=== PATIENT | female | born 1995 | race Caucasian/White ===

== ENCOUNTER → 2021-05-29 14:55 | Outpatient (BNVA) | payer OTHER, SELFPAY | PROVIDERS: Visit Provider Emergency Medicine | DX: Z20.822 Contact with and (suspected) exposure to COVID-19 (principal) | CPT/HCPCS: 87635 ==

== ENCOUNTER → 2021-12-29 08:24 | Outpatient (BNVA) | payer MEDICAID, SELFPAY | PROVIDERS: Visit Provider Nurse Practitioner Women's Health | DX: N92.6 Irregular menstruation, unspecified (principal) | CPT/HCPCS: 81025 ==

== ENCOUNTER → 2022-01-19 10:49 | Outpatient (BNVA) | payer MEDICAID, SELFPAY | PROVIDERS: Visit Provider Obstetrics & Gynecology | DX: Z34.90 Encounter for supervision of normal pregnancy, unspecified, unspecified trimester (principal); Z87.42 Personal history of other diseases of the female genital tract | CPT/HCPCS: 80307; 84315; 85027; 86592; 86762; 86803; 86850; 86900; 87086; 87340; 87806 ==

== ENCOUNTER → 2022-02-09 09:11 | Outpatient (BNVA) | payer MEDICAID, SELFPAY | PROVIDERS: Visit Provider Obstetrics & Gynecology | DX: Z34.90 Encounter for supervision of normal pregnancy, unspecified, unspecified trimester (principal); R87.610 Atypical squamous cells of undetermined significance on cytologic smear of cervix (ASC-US); Z87.42 Personal history of other diseases of the female genital tract | CPT/HCPCS: 84315; 87491; 87591; 88175 ==

== ENCOUNTER → 2022-03-10 09:51 | Outpatient (BNVA) | payer BC, MEDICAID, SELFPAY | PROVIDERS: Visit Provider Nurse Practitioner Women's Health | DX: Z34.90 Encounter for supervision of normal pregnancy, unspecified, unspecified trimester (principal); Z87.42 Personal history of other diseases of the female genital tract | CPT/HCPCS: 82105; 84315 ==

== ENCOUNTER → 2022-06-03 08:51 | Outpatient (BNVA) | payer BC, MEDICAID, SELFPAY | PROVIDERS: Visit Provider Obstetrics & Gynecology | DX: Z34.90 Encounter for supervision of normal pregnancy, unspecified, unspecified trimester (principal) | CPT/HCPCS: 81000; 82950; 85025 ==

== ENCOUNTER → 2022-06-14 10:28 | Outpatient (BNVA) | payer BC, MEDICAID, SELFPAY | PROVIDERS: Visit Provider Obstetrics & Gynecology | DX: Z34.90 Encounter for supervision of normal pregnancy, unspecified, unspecified trimester (principal) | CPT/HCPCS: 81000 ==

== ENCOUNTER → 2022-07-05 07:53 | Outpatient (BNVA) | payer BC, MEDICAID, SELFPAY | PROVIDERS: Visit Provider Obstetrics & Gynecology | DX: Z34.90 Encounter for supervision of normal pregnancy, unspecified, unspecified trimester (principal) | CPT/HCPCS: 81000 ==

== ENCOUNTER → 2022-07-12 09:56 | Outpatient (BNVA) | payer BC, MEDICAID, SELFPAY | PROVIDERS: Visit Provider Obstetrics & Gynecology | DX: Z34.90 Encounter for supervision of normal pregnancy, unspecified, unspecified trimester (principal) | CPT/HCPCS: 81000 ==

== ENCOUNTER → 2022-07-28 09:53 | Outpatient (BNVA) | payer BC, MEDICAID, SELFPAY | PROVIDERS: Visit Provider Obstetrics & Gynecology | DX: Z34.90 Encounter for supervision of normal pregnancy, unspecified, unspecified trimester (principal) | CPT/HCPCS: 81000; 87081 ==

== ENCOUNTER → 2022-08-02 08:50 | Outpatient (BNVA) | payer BC, MEDICAID, SELFPAY | PROVIDERS: Visit Provider Obstetrics & Gynecology | DX: Z34.90 Encounter for supervision of normal pregnancy, unspecified, unspecified trimester (principal) | CPT/HCPCS: 81000 ==

== ENCOUNTER → 2022-08-09 08:41 | Outpatient (BNVA) | payer BC, MEDICAID, SELFPAY | PROVIDERS: Visit Provider Obstetrics & Gynecology | DX: Z34.90 Encounter for supervision of normal pregnancy, unspecified, unspecified trimester (principal) | CPT/HCPCS: 81000 ==

== ENCOUNTER → 2022-08-16 09:56 | Outpatient (BNVA) | payer BC, MEDICAID, SELFPAY | PROVIDERS: Visit Provider Obstetrics & Gynecology | DX: Z34.90 Encounter for supervision of normal pregnancy, unspecified, unspecified trimester (principal) | CPT/HCPCS: 81000 ==

== ENCOUNTER → 2022-08-23 08:27 | Outpatient (BNVA) | payer BC, MEDICAID, SELFPAY | PROVIDERS: Visit Provider Obstetrics & Gynecology | DX: Z34.90 Encounter for supervision of normal pregnancy, unspecified, unspecified trimester (principal) | CPT/HCPCS: 81000 ==

== ENCOUNTER 2022-08-24 16:10 | Inpatient (IN) | payer BC, MEDICAID, SELFPAY ==
[2022-08-24] VITALS (17 sets, daily range): BP systolic 104–143; BP diastolic 63–101; PULSE 68–90; RESP 12–16; TEMP 36.3; O2SAT 91; BMI 31.8
[2022-08-24 16:15] LABS: Basophils % 0.3 %; Eosinophils % 0.1 %; Hematocrit 38.2 % (37.0-47.0); Hemoglobin 13.5 g/dL (11.5-15.3); Lymphocytes # 3.4 10^3/uL (0.8-4.8); Lymphocytes % 24.4 %; Mean Corpuscular HGB Conc 35.3 g/dL (30.0-36.0); Mean Corpuscular Hemoglobin 32.5 pg (28.0-34.0); Mean Platelet Volume 11.4 fL (7.4-10.4); Monocytes % 7.4 %; Neutrophils # 9.39 10^3/uL (1.8-7.7); Neutrophils % 66.8 %; Nucleated Red Blood Cells % 0 %; Platelet Count 233 10^3/cmm (130-400); Red Blood Count 4.15 10^6/uL (4.1-5.3); Red Cell Distribution Width 13.1 % (12.1-15.1); White Blood Count 14.1 10^3/uL (4.0-10.0)
[2022-08-24 17:16] LABS: Add Urine Microscopic? NO; Charge for UA Resulting for Rev
[2022-08-24 17:33] LABS: Glucose Urine UA Norm (Normal); Ketones Urine Negative (Negative); Protein Urine Neg (Negative); Specific Gravity, Urine 1.005 (1.005-1.030); Urine Appearance Clear (CLEAR); Urine Color Light Yellow (Yellow); pH Urine 6.5 (5-7)
[2022-08-24 17:34] LABS: Bilirubin Urine Neg (Negative); Blood Urine Neg (Negative); Leukocyte Esterase Urine Negative (Negative); Nitrate Urine Negative (Negative); Urobilinogen Urine Norm (Negative)
[2022-08-24] MEDS: miSOPROStol 100 mcg tablet 25 MCG VAGINAL ×2 (17:50→21:59)
[2022-08-24 17:56] LABS: Urine Creatinine 14 mg/dL (28-217); Urine Protein Random 4 mg/dL
[2022-08-24 17:57] LABS: UPRO/UCREAT Ratio 0.29 mg/mg CR
[2022-08-24 22:14] LABS: Alanine Aminotransferase 14 U/L (0-33); Albumin Level 3.6 g/dL (3.5-5.2); Alkaline Phosphatase 150 U/L (35-105); Anion Gap 18.7 (5-19); Aspartate Amino Transferase 24 U/L (0-32); Blood Urea Nitrogen 11 mg/dL (6-20); Calcium 9.1 mg/dL (8.5-10.5); Carbon Dioxide 17 mmol/L (22-29); Chloride 101 mmol/L (98-107); Globulin 2.6 g/dL (1.3-4.6); Glomerular Filtration Rate 86.7 mL/min (90-130); Glucose 75 mg/dL (65-115); Osmolality Calculated 274 mOsm/kg (285-295); Potassium 3.7 mmol/L (3.5-5.1); Sodium 133 mmol/L (136-145); Total Bilirubin 0.2 mg/dL (0.15-1.2); Total Protein 6.2 g/dL (6.6-8.7); Uric Acid 7.5 mg/dL (2.4-5.7)
[2022-08-25] VITALS (92 sets, daily range): BP systolic 103–154; BP diastolic 55–105; PULSE 67–111; RESP 14; TEMP 36.4–36.7; O2SAT 89–99
[2022-08-25] MEDS: lactated ringers 1,000 ML 999 ML IV ×2 (00:19→01:45)
--- NOTE | 2022-08-25 02:55 | ANES.PREANE2 ---
Pre-Anesthetic Assessment Height/Weight: Height 1.6 m Weight 81.647 kg Temp Pulse Resp BP Pulse Ox O2 Del Method 97.4 F L 77 16 136/86 99 08/24/22 23:38 08/25/22 02:50 08/24/22 23:38 08/25/22 02:43 08/25/22 02:50 08/24/22 18:43 Labor Epidural Familial anesthetic complications: None Last intake: 1999- meal 08/25/22 clears- current Social No alcohol and No tobacco Exam alert, oriented x 3 and clear to auscultation bilaterally Airway Submandibular: within normal limits Cervical ROM: within normal limits Mallampati: Class II Dentition: full History/ROS No significant history except as noted Pulmonary None reported CV/HEM None reported None reported Hepatic None reported GI None reported Metabolic None reported Musc/skel None reported Neuropsych None reported Anesthetic Plan ASA status: 2 Anesthesia: Regional (specify below) Other: Labor Epidural Medications/Allergies Home Medications Medication Instructions Recorded Confirmed Last Taken Type prenat.vits,cedrick,wfx-krqs-nplzh 1 tab PO DAILY 12/29/21 08/23/22 Unknown History cimetidine 400 mg tablet 400 mg PO BID #60 tabs 07/05/22 08/23/22 Unknown Rx Allergies Allergy/AdvReac Type Severity Reaction Status Date / Time No Known Allergies Allergy Verified 08/23/22 08:42 Current Medications Generic Name Dose Route Start Last Admin Trade Name Freq PRN Reason Stop Dose Admin Lactated Ringer's 1,000 mls @ 999 mls/hr 08/24/22 15:58 08/25/22 00:49 Lactated Ringers IV 0 mls/hr .Q1H1M PRN Infusion Per L&D Rescitation Protocol Ropivacaine 200 mg in 100 mls @ 13 mls/hr 08/25/22 01:45 08/25/22 02:49 Naropin Premix EPIDURAL 13 mls/hr .Q7H42M TERE Administration Lactated Ringer's 1,000 mls @ 999 mls/hr 08/25/22 01:33 08/25/22 01:45 Lactated Ringers IV 999 mls/hr .Q1H1M PRN Administration See label comments Misoprostol 25 mcg 08/24/22 17:15 08/24/22 21:59 Misoprostol 100 Mcg Tablet VAGINAL 25 mcg Q4H PRN Administration LABOR INDUCTION PFSH Anesthesia Medical History No pertinent past medical history Denies diabetes, asthma, hypertension, seizures, DVT/PE PCP: None Surgical History No pertinent past surgical history Family History Father Hypertension Denies family history of Colon cancer Ovarian cancer Diabetes Heart disease Hypercholesteremia Breast cancer Uterine cancer Thyroid disease Stroke Social History Smoking and tobacco status: never smoked Female Reproductive History : 1 Data Anesthesia : 08/24/22 15:35 08/24/22 11:53 Short CBC 08/24/22 Range/Units 15:35 WBC 14.1 H (4.0-10.0) 10^3/uL Hgb 13.5 (11.5-15.3) g/dL Hct 38.2 (37.0-47.0) % MCV 92.0 (81-99) fl Plt Count 233 (130-400) 10^3/cmm Neut % (Auto) 66.8 % Neut # (Auto) 9.39 H (1.8-7.7) 10^3/uL BMP 08/24/22 11:53 Sodium 133 L Potassium 3.7 Chloride 101 Carbon Dioxide 17 L BUN 11 Creatinine 0.8 Glucose 75 Calcium 9.1 Liver Function 08/24/22 Range/Units 11:53 Total Bilirubin 0.2 (0.15-1.2) mg/dL AST 24 (0-32) U/L ALT 14 (0-33) U/L Alkaline Phosphatase 150 H (35-105) U/L Albumin 3.6 (3.5-5.2) g/dL Urine 08/24/22 Range/Units 17:00 Urine Color Light yellow (Yellow) Urine Appearance Clear (CLEAR) Urine pH 6.5 (5-7) Ur Specific [place] 1.005 (1.005-1.030) Urine Protein Neg (Negative) Urine Glucose (UA) Norm (Normal) Urine Ketones Negative (Negative) Urine Nitrate Negative (Negative) Urine Bilirubin Neg (Negative) Ur Leukocyte Esterase Negative (Negative) Cardiac Studies: No Data to Display Anesthesia Procedures Epidural Time Out Performed: Yes Consent: from patient, risks and benefits reviewed and patient agrees to proceed Lumbar Level: L3-L4 Epidural position: sitting Epidural procedure: sterile prep of area, 1% lidocaine to numb the area, negative for paresthesia passed, test dose given, 1.5% xylocaine 1:200k epi, placed PCEA, no systemic response, sterile dressing applied, L.U.D. no apparent complications and 0.2% Ropiavacaine @ mls/hr (13) Additional Comments: successful on first attempt ALEXIS at 6.5 catheter threaded to 14 cm. 100 mcg Fentanyl given via epidural, remaining lidocaine given via epidural. VSS
[2022-08-25] MEDS: dextrose 5%-lactated ringers 1,000 ML 125 ML IV ×2 (05:49→14:00)
--- NOTE | 2022-08-25 06:14 | PM.OPHPUD ---
Labor & Delivery H&P Update Date of Procedure: August 25, 2022 Date H&P Performed: 08/23/22 H&P update information: I have reviewed H&P completed within last 30 days, I have examined patient prior to procedure and No changes to prior documentation Changes to previous documentation: The patient is here for induction of labor at term. Admission Diagnosis: Related Problem List Diagnoses (1) Supervision of normal :
[2022-08-25] MEDS: ondansetron 2 mg/ML SDV 2 mL 4 MG IVP (09:04)
[2022-08-25] MEDS: oxytocin 30 UNIT/500 ML BAG 600 UNIT IV (12:52)
[2022-08-25] MEDS: lidocaine 2% INJ 20 mL INJECTION (12:58)
--- NOTE | 2022-08-25 13:12 | P.PCNOB_ITS ---
Delivery Note: Date of delivery: August 25, 2022 Pre-delivery diagnoses: iup @ 40w3d Post-delivery diagnoses: same-delivered Procedure: Delivering Physician: Yomi Estimated blood loss (mL): 50 Pre-Delivery Course: The patient was admitted for induction at term. She had two doses of cytotec and received an epidural as she was laboring on her own. She had AROM performed with meconium stained fluid. She had complete cervical dilation and began pushing. Delivery: The patient had complete cervical dilation and began to push. The head delivered in the RAN position over an intact perineum under epidural anesthesia. The nose and mouth were bulb suctioned. The shoulders and body delivered atraumatically. The baby was placed onto the mother's abdomen. The cord was clamped and cut. The placenta delivered spontaneously. It was inspected and found to be intact. Inspection of the perineum revealed a second- degree perineal laceration which was repaired in the usual fashion. Estimated blood loss 50 mL. Apgars on baby were 8 at 1 minute and 8 at 5 minutes. Weight of baby is 7 pounds 6 ounces. Mother and baby were stable post delivery. History History History 1 Term Miscarriages/Ectopic Living Children Coding Level of Care Code Acute [employer] Tender for Basia Mckeon
[2022-08-25] MEDS: ibuprofen 800 mg tablet PO ×2 (16:35→21:22)
[2022-08-25] MEDS: benzocaine-menthol 78 gm Canister 1 SPRAY TOPICAL (16:36)
--- NOTE | 2022-08-25 16:41 | ANE.PACU2 ---
Inpatient post-anesthesia follow up: Airway intact: Yes Vital signs: Temperature 97.7 F Pulse Rate 83 Respiratory Rate 14 Blood Pressure 142/91 Pulse Oximetry 97 Oxygen Delivery Me thod Non-Rebreather Oxygen Flow Rate 15 Fraction of Inspir ed Oxygen Hydration adequate: Yes Nausea and vomiting: No Pain level: 2 Mental status: Baseline
--- NOTE | 2022-08-25 16:57 | PC.NURSE ---
RN at bedside at 1500. Epidural catheter removed. Catheter tip intact upon removal. Covered skin with bandaid. Tolerated well.
[2022-08-26 01:21] LABS: Hematocrit 32.8 % (37.0-47.0); Hemoglobin 11.4 g/dL (11.5-15.3); Mean Corpuscular HGB Conc 34.8 g/dL (30.0-36.0); Mean Corpuscular Hemoglobin 32.7 pg (28.0-34.0); Mean Platelet Volume 11.1 fL (7.4-10.4); Platelet Count 179 10^3/cmm (130-400); Red Blood Count 3.49 10^6/uL (4.1-5.3); Red Cell Distribution Width 13.3 % (12.1-15.1); White Blood Count 27.1 10^3/uL (4.0-10.0)
[2022-08-26 01:58] VITALS: BP 127/78; PULSE 77; TEMP 36.4; O2SAT 99
[2022-08-26 06:40] VITALS: BP 120/74; PULSE 81; TEMP 36.6; O2SAT 99
--- NOTE | 2022-08-26 08:00 | P.DS_ITS ---
Discharge Providers Date of Admission: 08/24/22 16:10 Date of Discharge: August 26, 2022 Attending Provider at Admission: Kaylin Celaya MD Attending Provider at Discharge: Kaylin Celaya MD Diagnoses at Discharge Discharge Diagnosis (1) Supervision of normal : Status: Acute Reason for Visit Reason for Visit: induction Hospital Course Hospital Course The patient was admitted for induction at term. She had spontaneous delivery of a term . She did well and was ready for discharge on day #1 Physical Exam Narrative: The patient is doing well. No concerns today Const: COMMON NORMALS: no acute distress, patient oriented x3, no limitations, healthy appearing, alert and well nourished GENERAL APPEARANCE: cooperative, comfortable, well kempt and well developed ORIENTATION/CONSCIOUSNESS: Yes awake, Yes oriented to person, Yes oriented to place and Yes oriented to time Resp: COMMON NORMALS: normal respiratory effort EFFORT & INSPECTION: Yes able to speak in complete sentences GI: COMMON NORMALS: Soft to palpation and non-tender PALPATION: Yes Soft to palpation Extremity: COMMON NORMALS: no calf tenderness Neuro: COMMON NORMALS: patient oriented x3 SENSORIUM/ORIENTATION: Yes alert, Yes oriented to person, Yes oriented to place and Yes oriented to time Psych: COMMON NORMALS: mental status grossly normal, Normal thought process present, cooperative, normal affect and speech normal APPEARANCE: Yes well kempt SPEECH: Yes normal speech THOUGHT PROCESS: Normal thought process present Urinary Catheter Management: Larios Latex: Cath Placed During This Visit: yes, but has since been removed by the nurse Reason for Continuing Indwelling Catheter: Required Immobilization for Trauma or Surgery or Anesthesia Urinary Catheter Date of Insertion: 08/25/22 Urinary Catheter Time of Insertion: 03:22 Date Urinary Catheter Removed: 08/25/22 Time Urinary Catheter Discontinued: 10:40 Discharge Data Studies Completed and Pending Laboratory Results WBC 27.1 10^3/uL (4.0-10.0) H 08/26/22 01:15 RBC 3.49 10^6/uL (4.1-5.3) L 08/26/22 01:15 Hgb 11.4 g/dL (11.5-15.3) L 08/26/22 01:15 Hct 32.8 % (37.0-47.0) L 08/26/22 01:15 MCV 94.0 fl (81-99) 08/26/22 01:15 MCH 32.7 pg (28.0-34.0) 08/26/22 01:15 MCHC 34.8 g/dL (30.0-36.0) 08/26/22 01:15 RDW 13.3 % (12.1-15.1) 08/26/22 01:15 Plt Count 179 10^3/cmm (130-400) 08/26/22 01:15 MPV 11.1 fL (7.4-10.4) H 08/26/22 01:15 Neut % (Auto) 66.8 % 08/24/22 15:35 Lymph % (Auto) 24.4 % 08/24/22 15:35 [place] % (Auto) 7.4 % 08/24/22 15:35 Eos % (Auto) 0.1 % 08/24/22 15:35 Baso % (Auto) 0.3 % 08/24/22 15:35 Neut # (Auto) 9.39 10^3/uL (1.8-7.7) H 08/24/22 15:35 Lymph # (Auto) 3.4 10^3/uL (0.8-4.8) 08/24/22 15:35 [place] # (Auto) 1.0 10^3/uL (0.2-0.9) H 08/24/22 15:35 Eos # (Auto) 0.0 10^3/uL (0.0-0.8) 08/24/22 15:35 Baso # (Auto) 0.0 10^3/uL (0.0-0.1) 08/24/22 15:35 Nucleated RBC % (auto) 0 % 08/24/22 15:35 Nucleated RBCs # 0.0 /100WBC 08/24/22 15:35 Sodium 133 mmol/L (136-145) L 08/24/22 11:53 Potassium 3.7 mmol/L (3.5-5.1) 08/24/22 11:53 Chloride 101 mmol/L (98-107) 08/24/22 11:53 Carbon Dioxide 17 mmol/L (22-29) L 08/24/22 11:53 Anion Gap 18.7 (5-19) 08/24/22 11:53 BUN 11 mg/dL (6-20) 08/24/22 11:53 Creatinine 0.8 mg/dL (0.5-0.9) 08/24/22 11:53 GFR Calculation 86.7 mL/min (90-130) L 08/24/22 11:53 Glucose 75 mg/dL (65-115) 08/24/22 11:53 Calculated Osmolality 274 mOsm/kg (285-295) L 08/24/22 11:53 Uric Acid 7.5 mg/dL (2.4-5.7) H 08/24/22 11:53 Calcium 9.1 mg/dL (8.5-10.5) 08/24/22 11:53 Total Bilirubin 0.2 mg/dL (0.15-1.2) 08/24/22 11:53 AST 24 U/L (0-32) 08/24/22 11:53 ALT 14 U/L (0-33) 08/24/22 11:53 Alkaline Phosphatase 150 U/L (35-105) H 08/24/22 11:53 Total Protein 6.2 g/dL (6.6-8.7) L 08/24/22 11:53 Albumin 3.6 g/dL (3.5-5.2) 08/24/22 11:53 Globulin 2.6 g/dL (1.3-4.6) 08/24/22 11:53 Urine Color Light yellow (Yellow) 08/24/22 17:00 Urine Appearance Clear (CLEAR) 08/24/22 17:00 Urine pH 6.5 (5-7) 08/24/22 17:00 Ur Specific [place] 1.005 (1.005-1.030) 08/24/22 17:00 Urine Protein Neg (Negative) 08/24/22 17:00 Urine Glucose (UA) Norm (Normal) 08/24/22 17:00 Urine Ketones Negative (Negative) 08/24/22 17:00 Urine Blood Neg (Negative) 08/24/22 17:00 Urine Nitrate Negative (Negative) 08/24/22 17:00 Urine Bilirubin Neg (Negative) 08/24/22 17:00 Urine Urobilinogen Norm mg/dL (Negative) 08/24/22 17:00 Ur Leukocyte Esterase Negative (Negative) 08/24/22 17:00 U Random Total Protein 4 mg/dL 08/24/22 17:00 Urine Creatinine 14 mg/dL (28-217) L 08/24/22 17:00 Protein/Creatinin Ratio 0.29 mg/mg CR 08/24/22 17:00 Vitals Last Vital Signs Temp 97.9 F 08/26/22 06:40 Pulse 81 08/26/22 06:40 Resp 14 08/25/22 13:11 BP 120/74 08/26/22 06:40 Pulse Ox 99 08/26/22 06:40 O2 Del Method 08/26/22 06:40 O2 Flow Rate 15 08/25/22 06:19 Discharge Plan Discharge Patient Disposition: Home Condition: Stable Prescriptions: Continued cimetidine 400 mg tablet 400 mg PO BID Qty: 60 5RF Rx Instructions: administer with meals prenat.vits,cedrick,txp-cxrk-iczad Tablet 1 tab PO DAILY Discharge Orders: Discharge Order (Routine); Ordered 08/26/22 Ordered By: Kaylin Celaya Referrals: Kaylin Celaya MD [Physician] - 10/08/22 3:30 pm Patient Instructions: Depression (DC), Bleeding (DC), Preeclampsia and Eclampsia After Delivery (GEN), Hemorrhage (DC), OB Discharge Report, OB Food/Drug Interaction Guide, OB Care at Home, Opioid Safety, OB Home Care, OB Vaginal Deliveries - [facility] Discharge Attestations Time Spent in Discharge Care*: less than 30 min Quality Metrics Clinical Quality Measures [ No reported AMI, CVA or VTE this stay] Coding Level of Care Code Acute Chg FW DC note Diagnoses Supervision of normal Z34.90
[2022-08-26] MEDS: prenatal vitamin Capsule 1 CAP PO (09:47)
[2022-08-26] MEDS: ibuprofen 800 mg tablet PO (09:47)
[2022-08-26] MEDS: docusate sodium 100 mg Capsule PO (09:47)
[2022-08-26 14:10] VITALS: BP 124/71; PULSE 84; RESP 16; TEMP 36.4; O2SAT 97
== END 2022-08-26 14:35 | disposition home or self-care (01) | DRG 807 ==
LOC: OPOB 16:11 → OBGYN 08-25 01:59
PROVIDERS: Admitting Provider Obstetrics & Gynecology; Visit Provider Obstetrics & Gynecology
DX: O48.0 Post-term pregnancy (principal); Z37.0 Single live birth; Z3A.40 40 weeks gestation of pregnancy; O77.0 Labor and delivery complicated by meconium in amniotic fluid; O70.1 Second degree perineal laceration during delivery; O75.89 Other specified complications of labor and delivery; K21.9 Gastro-esophageal reflux disease without esophagitis
CPT/HCPCS: 36415; 51702; 59025; 59409; 80053; 81003; 82570; 84156; 84550; 85025; 85027; 90471; 90686; 96374; 99211; J2405; J2795; J3010

== ENCOUNTER 2023-05-16 06:51 | Day surgery (SDC) | payer BC, MEDICAID, SELFPAY ==
[2023-05-13 08:55] VITALS: BMI 26.2
[2023-05-16] VITALS (10 sets, daily range): BP systolic 96–126; BP diastolic 57–85; PULSE 71–96; RESP 15–16; TEMP 36.1–36.7; O2SAT 98–100
--- NOTE | 2023-05-16 06:58 | P.HP_ITS ---
Providers/Chief Complaint Chief Complaint: 48653 K42.9 History of Present Illness Emilia Riley is a 27 year old female Medications/Allergies Home Medications Medication Instructions Recorded Confirmed Last Taken Type prenat.vits,cedrick,iiy-ldnu-ecnmj 1 tab PO DAILY 12/29/21 05/13/23 05/13/23 History norethindrone (contraceptive) 0.35 0.35 mg PO DAILY #28 tabs 09/15/22 05/13/23 05/13/23 Rx mg tablet ([facility]) Allergies Allergy/AdvReac Type Severity Reaction Status Date / Time No Known Allergies Allergy Verified 03/18/23 15:42 PFSH Acute PFSH: Medical History No pertinent past medical history Denies diabetes, asthma, hypertension, seizures, DVT/PE PCP: None Surgical History (Updated 04/05/23 @ 10:21 by Roger Rosen DO) Hx of wisdom tooth extraction No pertinent past surgical history Family History Father Hypertension Denies family history of Colon cancer Ovarian cancer Diabetes Heart disease Hypercholesteremia Breast cancer Uterine cancer Thyroid disease Stroke Social History Smoking and tobacco status: never smoked Alcohol intake: never Female Reproductive History: Date of last menstrual period: 04/09/23 A&P Assessment and plan (1) Umbilical hernia: Plan Laparoscopic umbilical hernia repair with mesh Attestations Medical Necessity Statement*: home Coding Level of Care Code Acute Code for [facility] Fwd Diagnoses Umbilical hernia K42.9
[2023-05-16 07:10] LABS: OR HCG Qualitative Urine Negative (Negative)
[2023-05-16] MEDS: sodium chloride 0.9% 1,000 ML 30 ML IV (07:20)
--- NOTE | 2023-05-16 08:06 | ANES.PREANE2 ---
Pre-Anesthetic Assessment Height/Weight: Height 1.6 m Weight 67.132 kg Temp Pulse Resp BP Pulse Ox O2 Del Method 97.7 F 80 16 96/79 99 Room Air 05/16/23 07:06 05/16/23 07:06 05/16/23 07:06 05/16/23 07:06 05/16/23 07:06 05/16/23 07:06 Operation Date: 05/16/23 08:10 Proposed Procedures p 70885 lap umbilical hernia repair with mesh K42.9(Not Applicable) - Roger Rosen DO Familial anesthetic complications: None Was Beta Phi taken within 24 hours: N/A Was Clonidine taken within 24 hours: N/A Last intake: Intake Last Liquid Date 05/15/23 Last Liquid Time 23:55 Last Solid Date 05/15/23 Last Solid Time 21:00 Social No alcohol and No tobacco Exam alert, oriented x 3, clear to auscultation bilaterally and regular rate & rhythm Airway Mallampati: Class II Dentition: chipped Anesthetic Plan ASA status: 3 Anesthesia: General Risk of > 500 ml blood loss (7ml/kg in children): No Medications/Allergies Home Medications Medication Instructions Recorded Confirmed Last Taken Type prenat.vits,cedrick,nrn-kdbj-osfgw 1 tab PO DAILY 12/29/21 05/13/23 05/13/23 History norethindrone (contraceptive) 0.35 0.35 mg PO DAILY #28 tabs 09/15/22 05/13/23 05/13/23 Rx mg tablet ([facility]) Allergies Allergy/AdvReac Type Severity Reaction Status Date / Time No Known Allergies Allergy Verified 03/18/23 15:42 Current Medications Generic Name Dose Route Start Last Admin Trade Name Freq PRN Reason Stop Dose Admin Sodium Chloride 1,000 mls @ 30 mls/hr 05/16/23 07:00 05/16/23 07:20 Sodium Chloride 0.9% IV 05/17/23 06:59 30 mls/hr .Q24H TERE Administration PFSH Anesthesia Medical History No pertinent past medical history Denies diabetes, asthma, hypertension, seizures, DVT/PE PCP: None Surgical History (Updated 04/05/23 @ 10:21 by Roger Rosen DO) Hx of wisdom tooth extraction No pertinent past surgical history Family History Father Hypertension Denies family history of Colon cancer Ovarian cancer Diabetes Heart disease Hypercholesteremia Breast cancer Uterine cancer Thyroid disease Stroke Social History Smoking and tobacco status: never smoked Alcohol intake: never Female Reproductive History Date of last menstrual period: 04/09/23 Data Anesthesia Cardiac Studies: No Data to Display
[2023-05-16] MEDS: ceFAZolin 2,000 MG in sodium chloride 0.9% (plus) 50 ML 100 MG IV (08:14)
[2023-05-16] MEDS: lidocaine-epi 2% 20 mL INJ INJECTION (08:36)
--- NOTE | 2023-05-16 08:53 | PM.OP ---
Operative Report Date of procedure: May 16, 2023 Pre-op diagnosis: Umbilical hernia Post-op diagnosis: same Procedure done: Laparoscopic repair of umbilical hernia with mesh Implants: 11 cm ventral light round mesh Specimens removed/disposition: Hernia sac Surgeon: Dr. Roger Rosen DO Anesthesia: General Estimated blood loss (mL): 5 Complications: None apparent Brief History: This very pleasant 27-year-old female who presented my office with a reducible 1.5 cm umbilical hernia. She desires repair. Laparoscopic umbilical hernia repair with mesh was indicated. The risk and benefits were explained and documented. Procedure: Patient was wheeled into the operative room and placed on the OR table in a supine position. Abdomen was inspected prepped and draped in usual sterile fashion. Time-out was performed and all present were in agreement. A 15 blade scalp was used to make a 5 millimeter incision left upper quadrant. A Veress needle was placed into the incision and intra-abdominal insufflation was brought to 15 millimeters of mercury. A 12 millimeter trocar was placed into the left lower quadrant. The energy but device was then used to cut out the hernia sac. The hernia defect measured 1.5 cm in diameter. An 11 cm ventral light mesh was placed into the abdomen and brought up through the umbilicus using an the Jose-No. The mesh was then tacked in place in a double crown fashion. The skeleton of the mesh was removed via the left lower quadrant. The hernia sac was then removed from the abdomen via the left lower quadrant. The left lower quadrant port site was closed with an 0 Vicryl suture in a Jose-No in a [id number] fashion. Incisions were closed with 4-0 Monocryl in a subcuticular interrupted fashion. Skin glue was applied. A dressing that included cotton balls and a Tegaderm was placed over the umbilicus. Patient tolerated the procedure well.
[2023-05-16] MEDS: HYDROcodone-acetaminophen 5-325 mg Tablet 1 TAB PO (10:01)
--- NOTE | 2023-05-16 13:50 | ANE.PACU2 ---
Inpatient post-anesthesia follow up: Airway intact: Yes Vital signs: Temperature 98.1 F Pulse Rate 79 Respiratory Rate 15 Blood Pressure 98/78 Pulse Oximetry 98 Oxygen Delivery Me thod Room Air Oxygen Flow Rate 6 Fraction of Inspir ed Oxygen Hydration adequate: Yes Nausea and vomiting: Yes Pain level: 1 Mental status: Baseline
== END 2023-05-16 11:00 | disposition home or self-care (01) ==
PROVIDERS: Visit Provider Surgery
PROC: 0WQF4ZZ Repair Abdominal Wall, Percutaneous Endoscopic Approach (ICD-10-PCS; CPT 49591; principal; 2023-05-16 08:00)
DX: K42.9 Umbilical hernia without obstruction or gangrene (principal)
CPT/HCPCS: 49591; 81025; 84703; 88302; C1781; J0690; J1100; J1885; J2405; J2704; J2710; J3010; J3490; J7030

== ENCOUNTER 2024-04-07 02:05 | Inpatient (IN) | payer BC, MEDICAID, SELFPAY ==
[2024-04-07] VITALS (92 sets, daily range): BP systolic 93–177; BP diastolic 51–130; PULSE 63–106; RESP 16–17; TEMP 36.6; O2SAT 83–100; BMI 31.3
[2024-04-07] MEDS: lactated ringers 1,000 ML 999 ML IV ×2 (02:56→04:05)
[2024-04-07 03:10] LABS: Basophils % 0.3 %; Eosinophils # 0.1 10^3/uL (0.0-0.8); Eosinophils % 0.6 %; Hematocrit 37.7 % (36-47); Lymphocytes # 3.2 10^3/uL (0.8-4.8); Mean Corpuscular HGB Conc 34.7 g/dL (30-55); Mean Corpuscular Hemoglobin 32.1 pg (27-33); Mean Corpuscular Volume 92.4 fl (85-98); Mean Platelet Volume 10.2 fL (7.4-10.4); Monocytes % 7.1 %; Neutrophils # 9.49 10^3/uL (1.8-7.7); Neutrophils % 68.2 %; Nucleated Red Blood Cells % 0 %; Platelet Count 227 10^3/cmm (157-399); Red Blood Count 4.08 10^6/uL (3.85-5.65); Red Cell Distribution Width 12.6 % (12.1-15.1); White Blood Count 13.93 10^3/uL (3.29-11.43)
[2024-04-07] MEDS: ampicillin 2,000 MG in sodium chloride 0.9% (plus) 50 ML 100 MG IV (03:21)
[2024-04-07] MEDS: ROPivacaine syringe 100 MG/50 ML SYRINGE 10 MG EPIDURAL ×3 (04:38→10:07)
--- NOTE | 2024-04-07 04:51 | P.ANESASSM_ITS ---
Pre-Anesthetic Assessment Height/Weight: Height 1.6 m Weight 80.286 kg Pulse BP Pulse Ox 93 123/68 97 04/07/24 04:47 04/07/24 04:46 04/07/24 04:47 Preop Diagnosis: IUP Labor Epidural Familial anesthetic complications: None Was Beta Phi taken within 24 hours: N/A Was Clonidine taken within 24 hours: N/A Last intake: CLEARS- CURRENT Social No alcohol and No tobacco Exam alert, oriented x 3 and clear to auscultation bilaterally Airway Submandibular: within normal limits Cervical ROM: within normal limits Mallampati: Class II Dentition: full History/ROS No significant history except as noted CV/HEM None reported None reported Hepatic None reported GI Gastroesophageal Reflux Disease Metabolic None reported Musc/skel None reported Neuropsych None reported Anesthetic Plan ASA status: 2 Anesthesia: Regional (specify below) Other: Labor Epidural Other Pertinent Information elevated WBC 13,000 with no obvious indication of infectious process Medications/Allergies Home Medications Medication Instructions Recorded Confirmed Last Taken Type prenat.vits,cedrick,avo-xzcx-lvefh 1 tab PO DAILY 12/29/21 05/31/23 05/15/23 History norethindrone (contraceptive) 0.35 0.35 mg PO DAILY #28 tabs 09/15/22 05/31/23 05/15/23 Rx mg tablet ([facility]) Allergies Allergy/AdvReac Type Severity Reaction Status Date / Time No Known Allergies Allergy Verified 05/31/23 14:15 Current Medications Generic Name Dose Route Start Last Admin Trade Name Freq PRN Reason Stop Dose Admin Lactated Ringer's 1,000 mls @ 999 mls/hr 04/07/24 02:01 04/07/24 02:56 Lactated Ringers IV 999 mls/hr .Q1H1M PRN Administration See label comments PFSH Anesthesia Medical History No pertinent past medical history Denies diabetes, asthma, hypertension, seizures, DVT/PE PCP: None Surgical History (Updated 05/31/23 @ 14:44 by Roger Rosen DO) Hx of umbilical hernia repair 05/16/23 Dr. Rosen Hx of wisdom tooth extraction No pertinent past surgical history Family History Father Hypertension Denies family history of Colon cancer Ovarian cancer Diabetes Heart disease Hypercholesteremia Breast cancer Uterine cancer Thyroid disease Stroke Social History Smoking and tobacco/nicotine status: never used tobacco/nicotine Alcohol intake: never Female Reproductive History : 2 Data Anesthesia 04/07/24 03:00 Short CBC 04/07/24 Range/Units 03:00 WBC 13.93 H (3.29-11.43) 10^3/uL Hgb 13.10 (11.27-16.99) g/dL Hct 37.7 (36-47) % MCV 92.4 (85-98) fl Plt Count 227 (157-399) 10^3/cmm Neut % (Auto) 68.2 % Neut # (Auto) 9.49 H (1.8-7.7) 10^3/uL Blood Bank 04/07/24 03:00 Blood Type A Positive Rho(D) Type Rh positive Antibody Screen Negative Cardiac Studies: 2 No Data to Display Anesthesia Procedures Epidural Time Out Performed: Yes Consents Signed: Procedure Consent Consent: from patient, risks and benefits reviewed and patient agrees to proceed Lumbar Level: L3-L4 Epidural position: sitting Epidural procedure: sterile prep of area, 1% lidocaine to numb the area, negative for paresthesia passed, test dose given, 1.5% xylocaine 1:200k epi, placed PCEA, no systemic response, sterile dressing applied and L.U.D. no apparent complications Additional Comments: ALEXIS @ 4.5cm , first attempt, - heme -csf. catheter threaded to 12cm with ease. Adequate analgesia achieved.
[2024-04-07] MEDS: dextrose 5%-lactated ringers 1,000 ML 125 ML IV (05:10)
[2024-04-07] MEDS: ampicillin 1,000 MG in sodium chloride 0.9% (plus) 50 ML 100 MG IV ×2 (06:36→10:07)
[2024-04-07] MEDS: oxytocin 30 UNIT/500 ML BAG 600 UNIT IV (13:04)
--- NOTE | 2024-04-07 13:24 | PM.OPHPUD ---
Labor & Delivery H&P Update Date of Procedure: April 07, 2024 Date H&P Performed: 04/05/23 Admission Diagnosis: IUP at 40 weeks 0 days gestation Active labor Group B strep positive Preop diagnosis: IUP Planned procedure: Expectant management of labor and delivery GBS prophylaxis
--- NOTE | 2024-04-07 13:24 | PM.DELIVERY ---
Delivery Note: Date of delivery: April 07, 2024 Pre-Delivery Course: The patient had routine care at [facility]. There were no complications during the . labs: Blood type a positive antibody negative, hepatitis B nonreactive, hepatitis C nonreactive, HIV nonreactive, rubella nonimmune, GC chlamydia negative, RPR nonreactive, UDS negative, Q jennifer low risk, she failed her 1 hour glucose tolerance but passed her 3-hour glucose tolerance test, she was GBS positive. She received 3 doses of ampicillin prior to delivery. Delivery: This is a 28-year-old G2, P1 at 40 weeks 0 days gestation who presented to labor and delivery in active labor. She received an epidural for pain management. Her labor progressed rather well on its own. She had spontaneous rupture of membranes with meconium stained fluid less than 1 hour prior to delivery. She had a very swollen anterior lip that was reducible with pushing. She only had to push through 2 contractions and had a normal spontaneous vaginal delivery of a viable female weight 3600 g, 7 pounds 15 ounces, Apgars 8 and 9 over an intact perineum. The infant was suctioned at delivery and placed on the mother's chest. The cord was clamped and cut. The placenta was delivered grossly intact and normal to inspection with meconium staining. There was a second-degree perineal laceration that was sutured using 3-0 chromic in a running fashion. Estimated blood loss 150 mL. Mother and infant were doing well after delivery. History History History 1 Term 1 0 Miscarriages/Ectopic 0 Living Children 1 Coding Level of Care Code Acute Code for Chg Fwd
--- NOTE | 2024-04-07 14:54 | ANE.PACU2 ---
Inpatient post-anesthesia follow up: Airway intact: Yes Vital signs: Temperature Pulse Rate 93 Respiratory Rate Blood Pressure 115/61 Pulse Oximetry 97 Oxygen Delivery Me thod Oxygen Flow Rate Fraction of Inspir ed Oxygen Hydration adequate: Yes Nausea and vomiting: No Pain level: 2 Mental status: Baseline Epidural Start/End: Epidural Start Date: 04/07/24 Epidural Start Time: 04:16 Epidural End Date: 04/07/24 Epidural End Time: 14:20
[2024-04-07] MEDS: docusate sodium 100 mg Capsule PO (16:41)
[2024-04-07] MEDS: ibuprofen 800 mg tablet PO ×2 (16:41→21:11)
[2024-04-07] MEDS: lanolin oint 7 gm 1 APPLIC TOPICAL (16:42)
[2024-04-07] MEDS: benzocaine-menthol 78 gm Canister 1 SPRAY TOPICAL (16:42)
[2024-04-08 01:55] LABS: Hematocrit 35.4 % (36-47); Mean Corpuscular HGB Conc 34.2 g/dL (30-55); Mean Corpuscular Hemoglobin 32.3 pg (27-33); Mean Corpuscular Volume 94.4 fl (85-98); Mean Platelet Volume 10.3 fL (7.4-10.4); Platelet Count 199 10^3/cmm (157-399); Red Blood Count 3.75 10^6/uL (3.85-5.65); Red Cell Distribution Width 12.9 % (12.1-15.1); White Blood Count 14.05 10^3/uL (3.29-11.43)
[2024-04-08 04:14] VITALS: BP 112/73; PULSE 86; RESP 16; TEMP 36.7; O2SAT 98
[2024-04-08] MEDS: PRENATAL VIT NO.130/IRON/FOLIC 1 EACH TABLET PO (08:26)
[2024-04-08] MEDS: ibuprofen 800 mg tablet PO (08:26)
[2024-04-08] MEDS: docusate sodium 100 mg Capsule PO (08:26)
[2024-04-08] MEDS: measles,mumps,rubella pf Vial (w/diluent) 0.5 ML SUBCUT (08:30)
[2024-04-08 09:45] VITALS: BP 112/64; PULSE 89; RESP 16; TEMP 36.6; TEMP 36.7; O2SAT 97
--- NOTE | 2024-04-08 12:06 | PM.DCS ---
Discharge Providers Date of Admission: 04/07/24 02:05 Date of Discharge: April 08, 2024 Attending Provider at Admission: Shelly Yuan MD Attending Provider at Discharge: Shelly Yuan MD Reason for Visit Reason for Visit: contractions Hospital Course Hospital Course This is a 28-year-old G2 now P2 who was admitted in active labor and had a normal spontaneous vaginal delivery of a viable female infant. Mother and infant have done well after delivery. Mother is ambulating, tolerating a regular diet, has average vaginal bleeding and is comfortable with discharge home. Physical Exam Narrative: Alert and oriented, feeding in bed, heart regular rate and rhythm, lungs clear to auscultation bilaterally, abdomen is soft and nontender, fundus is firm, extremities have trace edema but no calf tenderness Urinary Catheter Management: Larios Latex: Cath Placed During This Visit: yes, but has since been removed by the nurse Reason for Continuing Indwelling Catheter: Decision to DC Catheter Urinary Catheter Date of Insertion: 04/07/24 Urinary Catheter Time of Insertion: 05:30 Date Urinary Catheter Removed: 04/07/24 Time Urinary Catheter Discontinued: 12:58 Discharge Data Studies Completed and Pending Laboratory Results WBC 14.05 10^3/uL (3.29-11.43) H 04/08/24 01:35 RBC 3.75 10^6/uL (3.85-5.65) L 04/08/24 01:35 Hgb 12.10 g/dL (11.27-16.99) 04/08/24 01:35 Hct 35.4 % (36-47) L 04/08/24 01:35 MCV 94.4 fl (85-98) 04/08/24 01:35 MCH 32.3 pg (27-33) 04/08/24 01:35 MCHC 34.2 g/dL (30-55) 04/08/24 01:35 RDW 12.9 % (12.1-15.1) 04/08/24 01:35 Plt Count 199 10^3/cmm (157-399) 04/08/24 01:35 MPV 10.3 fL (7.4-10.4) 04/08/24 01:35 Neut % (Auto) 68.2 % 04/07/24 03:00 Lymph % (Auto) 23.0 % 04/07/24 03:00 [place] % (Auto) 7.1 % 04/07/24 03:00 Eos % (Auto) 0.6 % 04/07/24 03:00 Baso % (Auto) 0.3 % 04/07/24 03:00 Neut # (Auto) 9.49 10^3/uL (1.8-7.7) H 04/07/24 03:00 Lymph # (Auto) 3.2 10^3/uL (0.8-4.8) 04/07/24 03:00 [place] # (Auto) 1.0 10^3/uL (0.2-0.9) H 04/07/24 03:00 Eos # (Auto) 0.1 10^3/uL (0.0-0.8) 04/07/24 03:00 Baso # (Auto) 0.0 10^3/uL (0.0-0.1) 04/07/24 03:00 Nucleated RBC % (auto) 0 % 04/07/24 03:00 Nucleated RBCs # 0.0 /100WBC 04/07/24 03:00 Blood Type A Positive 04/07/24 03:00 Rho(D) Type Rh positive 04/07/24 03:00 Antibody Screen Negative 04/07/24 03:00 Vitals Last Vital Signs Temp 98.0 F 04/08/24 09:45 Pulse 89 04/08/24 09:45 Resp 16 04/08/24 09:45 BP 112/64 04/08/24 09:45 Pulse Ox 97 04/08/24 09:45 O2 Del Method Room Air 04/08/24 09:45 Discharge Plan Discharge Patient Disposition: Home Condition: Stable Prescriptions: Continued prenat.vits,cedrick,[id number] Tablet 1 tab PO DAILY Discontinued norethindrone (contraceptive) [Ortho [facility]] 0.35 mg tablet 0.35 mg PO DAILY Qty: 28 12RF Discharge Orders: Discharge Order (Routine); Ordered 04/08/24 Ordered By: Shelly Yuan Referrals: Shelly Yuan MD [Physician] - 1 month Discharge Diet: Usual diet Discharge Activity: Limit activity as instructed Patient Instructions: Depression (DC), Opioid Safety (DC), Preeclampsia and Eclampsia After Delivery (GEN), Hemorrhage (DC), OB Discharge Report, OB Food/Drug Interaction Guide, OB Care at Home, Opioid Safety, OB Vaginal Deliveries, Abnormal Bleeding Activity Restrictions/Additional Instructions: Nothing per vagina for 6 weeks Discharge Attestations Time Spent in Discharge Care*: less than 30 min Quality Metrics Clinical Quality Measures [ No reported AMI, CVA or VTE this stay] Coding Level of Care Code Acute Code for Chg Fwd
[2024-04-08 14:45] VITALS: BP 118/78; PULSE 87; RESP 16; TEMP 36.8; O2SAT 100
[2024-04-08 15:45] VITALS: BP 118/78; PULSE 87; RESP 16; TEMP 36.8; O2SAT 100
== END 2024-04-08 14:57 | disposition home or self-care (01) | DRG 807 ==
LOC: OPOB 02:06 → OBGYN 02:06
PROVIDERS: Admitting Provider Family Medicine; Visit Provider Family Medicine
DX: O99.824 Streptococcus B carrier state complicating childbirth (principal); Z37.0 Single live birth; O77.0 Labor and delivery complicated by meconium in amniotic fluid; O70.1 Second degree perineal laceration during delivery; Z3A.40 40 weeks gestation of pregnancy
CPT/HCPCS: 36415; 51702; 59025; 59409; 83986; 85025; 85027; 86850; 86900; 90707; 96372; 99211; J0290; J2590; J2795; J7120; J7121

== ENCOUNTER 2024-08-05 16:27 | Emergency (ER) | payer BC, MEDICAID, SELFPAY ==
[2024-08-05 16:32] VITALS: BP 135/83; PULSE 78; RESP 15; TEMP 36.7; O2SAT 99; BMI 28.0
--- NOTE | 2024-08-05 17:04 | W.ED.EXTPRO ---
HPI - Extremity Problem General: Chief complaint: Extremity Injury, Lower Stated complaint: both feet tingling, pain and swelling Time Seen by Provider: 08/05/24 16:44 History of Present Illness: 29-year-old female comes in today with complaints of pain, tingling in the soles of the feet, and some mild swelling. 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 Patient this time is wearing [place] shoes and does endorse that she has wore sandals all week at work. Patient reports increased pain and discomfort over the last 2 days. Patient appears nontoxic. Patient denies any chronic medical problems. Related Data Home Medications Medication Instructions Recorded Confirmed prenat.vits,cedrick,[id number] 1 tab PO DAILY 12/29/21 05/31/23 Allergies Allergy/AdvReac Type Severity Reaction Status Date / Time No Known Allergies Allergy Verified 05/31/23 14:15 Review of Systems General: Reports: 10 or more systems reviewed and unremarkable except in HPI and below PFSH ED PFSH: Medical History (Updated 08/05/24 @ 17:05 by VERN Eddy) No pertinent past medical history Denies diabetes, asthma, hypertension, seizures, DVT/PE PCP: None Surgical History (Updated 05/31/23 @ 14:44 by Roger Rosen DO) Hx of umbilical hernia repair 05/16/23 Dr. Rosen Hx of wisdom tooth extraction No pertinent past surgical history Family History Father Hypertension Denies family history of Colon cancer Ovarian cancer Diabetes Heart disease Hypercholesteremia Breast cancer Uterine cancer Thyroid disease Stroke Social History Smoking and tobacco/nicotine status: never used tobacco/nicotine Alcohol intake: never Physical Exam Const: COMMON NORMALS: alert HENMT: COMMON NORMALS: normocephalic HEAD & SCALP: normocephalic Neck/C-Spine: COMMON NORMALS: full ROM Resp: COMMON NORMALS: normal respiratory effort Cardio: COMMON NORMALS: regular rate RATE: regular rate Back/Pelvis: COMMON NORMALS: thoracic and lumbar spine normal to inspection Extremity: COMMON NORMALS: normal to inspection Neuro: SENSORIUM/ORIENTATION: Yes alert Skin: COMMON NORMALS: turgor normal GENERAL SKIN EXAM: turgor normal Course Vital Signs: Vital signs: Vital Signs Temperature 98.1 F 08/05/24 16:32 Pulse Rate 78 08/05/24 16:32 Respiratory Rate 15 08/05/24 16:32 Blood Pressure 135/83 08/05/24 16:32 Pulse Oximetry 99 08/05/24 16:32 Oxygen Delivery Me thod Room Air 08/05/24 16:32 MDM - Extremity (Nontraumatic) Medical Decision Making Patient comes in today for complaints of bilateral foot pain along with tingling and numbness at times. On exam patient has no obvious swelling or irregularity in the soles of the feet. Patient has prompt capillary refill. Patient does report some decreased sensation in the digits. Negative Babinski's. Cap refills intact. Vital signs are normal. Differential diagnosis includes not limited to lumbar radiculopathy, tarsal tunnel syndrome, plantar fasciitis, pes planus. Reviewed exam with patient with recommendations for change of shoes with better support for the foot, heel, and arch. Discussed need for the use of acetaminophen ibuprofen for pain. Recommended follow-up with podiatry for further recommendations. Patient stated understanding agreed to plan. No radiology studies performed this visit Discharge Plan Discharge Patient Disposition: Home Clinical Impression: Foot pain, bilateral Condition: Stable Prescriptions: No Action prenat.vits,cedrick,[id number] Tablet 1 tab PO DAILY Discharge Orders: Discharge ED (Routine); Ordered 08/05/24 Ordered By: Timothy Krueger Discharge Diet: Usual diet Discharge Activity: Increase activity as tolerated Patient Instructions: Metatarsalgia (DC) Activity Restrictions/Additional Instructions: Wear a good supportive shoe with plenty of cushion and good arch and heel support. You may try a insert to help with pain. Avoid shoes with minimal cushion or support for the foot such as flip-flops and/or [place]. Coding Level of Care Code ED Registration Coordinator for Basia Mckeon
--- NOTE | 2024-08-06 08:23 | DCPLANNER ---
messaged podiatry for er f/u
== END 2024-08-05 17:18 | disposition home or self-care (01) ==
PROVIDERS: Emergency Provider Nurse Practitioner Family
DX: M79.672 Pain in left foot (principal); M79.671 Pain in right foot
CPT/HCPCS: 99282

== ENCOUNTER → 2024-08-29 14:07 | Outpatient (BNVA) | payer BC, MEDICAID, SELFPAY | PROVIDERS: Visit Provider Podiatrist Foot & Ankle Surgery | DX: M79.671 Pain in right foot (principal); M79.672 Pain in left foot; M21.6X1 Other acquired deformities of right foot; M21.6X2 Other acquired deformities of left foot; M72.2 Plantar fascial fibromatosis; M76.821 Posterior tibial tendinitis, right leg; M76.822 Posterior tibial tendinitis, left leg | CPT/HCPCS: 73630 ==

== ENCOUNTER 2024-10-16 22:36 | Emergency (ER) | payer BC, MEDICAID, SELFPAY ==
[2024-10-16 22:38] VITALS: BP 122/86; PULSE 80; RESP 15; TEMP 36.6; O2SAT 99; BMI 27.6
[2024-10-16 22:46] VITALS: BP 133/77; PULSE 80; O2SAT 98
--- NOTE | 2024-10-16 23:12 | ED_ITS ---
HPI - Extremity Problem 2 General: Chief complaint: Extremity Injury, Lower Stated complaint: legs suddenly feel like jello after walk 10 feet Time Seen by Provider: 10/16/24 22:51 History of Present Illness: 29-year-old female who is having issues with her legs feeling weak from the knees down for several months now. She was seen by podiatry and they felt like it was not related to her feet and they recommend that she goes to orthopedics. Says it has been getting somewhat worse. She says her calves become cramped when she walks. She also has some pain behind her right knee. This happened recent injury a few months back and was what she says is the initiation of this problem. She appears to have good circulation. No fevers. No redness. I do not see any obvious swelling. Related Data Home Medications Medication Instructions Recorded Confirmed prenat.vits,cedrick,[id number] 1 tab PO DAILY 12/29/21 10/09/24 Allergies Allergy/AdvReac Type Severity Reaction Status Date / Time No Known Allergies Allergy Verified 10/16/24 22:47 Review of Systems 2 Narrative: Constitutional symptoms: Negative except as documented in HPI. Skin symptoms: Negative except as documented in HPI. Eye symptoms: Negative except as documented in HPI. ENMT symptoms: Negative except as documented in HPI. Respiratory symptoms: Negative except as documented in HPI. Cardiovascular symptoms: Negative except as documented in HPI. Gastrointestinal symptoms: Negative except as documented in HPI. Genitourinary symptoms: Negative except as documented in HPI. Musculoskeletal symptoms: Negative except as documented in HPI. Neurologic symptoms: Negative except as documented in HPI. Psychiatric symptoms: Negative except as documented in HPI. Endocrine symptoms: Negative except as documented in HPI. PFSH ED 2 PFSH: Medical History No pertinent past medical history Denies diabetes, asthma, hypertension, seizures, DVT/PE PCP: None Surgical History Hx of umbilical hernia repair 05/16/23 Dr. Rosen Hx of wisdom tooth extraction No pertinent past surgical history Family History Father Hypertension Denies family history of Colon cancer Ovarian cancer Diabetes Heart disease Hypercholesteremia Breast cancer Uterine cancer Thyroid disease Stroke Social History Smoking and tobacco/nicotine status: never used tobacco/nicotine Alcohol intake: never Female Reproductive History: Date of last menstrual period: 10/15/24 Physical Exam 2 Narrative: EXAM NARRATIVE: General: Alert, no acute distress. Skin: warm and dry Head: Normocephalic Neck: Trachea midline Eye: Extraocular movements are intact. Ears, nose, mouth and throat: Oral mucosa moist Respiratory: Respirations are non-labored Musculoskeletal: Normal ROM Neurological: Alert and oriented, No focal neurological deficit observed. Psychiatric: Cooperative, appropriate mood & affect. Course 2 Vital Signs: Vital signs: Vital Signs Temperature 97.8 F 10/16/24 22:38 Pulse Rate 87 10/17/24 00:06 Respiratory Rate 15 10/16/24 22:38 Blood Pressure 103/71 10/17/24 00:06 Pulse Oximetry 98 10/17/24 00:06 Oxygen Delivery Me thod Room Air 10/16/24 22:46 MDM - Extremity (Nontraumatic) Medical Decision Making Lab Review: Laboratory results were reviewed and interpreted by myself the emergency room physician. No leukocytosis. No anemia. No renal failure. Potassium and magnesium are normal. Liver enzymes are normal. I reviewed the patient's medical record. Reexamination: Patient remained stable. No increased work of breathing. No altered mental status. No focal motor deficits. I discussed with patient at length possible avenues to find a diagnosis for this. It has been going on for some time. No recent trauma so I do not think any imaging or do right now. I feel like she should follow-up with Ortho as podiatry instructed and possibly consider neurology if orthopedics cannot diagnose her condition. Assessment and plan: Bilateral leg pain - Discharged home - Discussed plan with patient. Answered any questions. - Evaluation and treatment of this problem were appropriate in the emergency setting. Lab Data 10/16/24 23:10 10/16/24 23:10 Laboratory Results WBC 9.86 10^3/uL (3.29-11.43) 10/16/24 23:10 RBC 4.11 10^6/uL (3.85-5.65) 10/16/24 23:10 Hgb 13.00 g/dL (11.27-16.99) 10/16/24 23:10 Hct 37.3 % (36-47) 10/16/24 23:10 MCV 90.8 fl (85-98) 10/16/24 23:10 MCH 31.6 pg (27-33) 10/16/24 23:10 MCHC 34.9 g/dL (30-55) 10/16/24 23:10 RDW 11.9 % (12.1-15.1) L 10/16/24 23:10 Plt Count 302 10^3/cmm (157-399) 10/16/24 23:10 MPV 9.7 fL (7.4-10.4) 10/16/24 23:10 Neut % (Auto) 51.9 % 10/16/24 23:10 Lymph % (Auto) 38.9 % 10/16/24 23:10 [place] % (Auto) 7.6 % 10/16/24 23:10 Eos % (Auto) 0.7 % 10/16/24 23:10 Baso % (Auto) 0.7 % 10/16/24 23:10 Neut # (Auto) 5.11 10^3/uL (1.8-7.7) 10/16/24 23:10 Lymph # (Auto) 3.8 10^3/uL (0.8-4.8) 10/16/24 23:10 [place] # (Auto) 0.8 10^3/uL (0.2-0.9) 10/16/24 23:10 Eos # (Auto) 0.1 10^3/uL (0.0-0.8) 10/16/24 23:10 Baso # (Auto) 0.1 10^3/uL (0.0-0.1) 10/16/24 23:10 Nucleated RBC % (auto) 0 % 10/16/24 23:10 Nucleated RBCs # 0.0 /100WBC 10/16/24 23:10 Sodium 141 mmol/L (136-145) 10/16/24 23:10 Potassium 3.8 mmol/L (3.5-5.1) 10/16/24 23:10 Chloride 105 mmol/L (98-107) 10/16/24 23:10 Carbon Dioxide 25 mmol/L (22-29) 10/16/24 23:10 Anion Gap 14.8 (5-19) 10/16/24 23:10 BUN 9 mg/dL (6-20) 10/16/24 23:10 Creatinine 0.6 mg/dL (0.5-0.9) 10/16/24 23:10 GFR Calculation 119.0 mL/min (90-130) 10/16/24 23:10 Glucose 102 mg/dL (65-115) 10/16/24 23:10 Calculated Osmolality 291 mOsm/kg (285-295) 10/16/24 23:10 Calcium 9.4 mg/dL (8.5-10.5) 10/16/24 23:10 Magnesium 2.1 mg/dL (1.7-2.3) 10/16/24 23:10 Total Bilirubin 0.2 mg/dL (0.15-1.2) 10/16/24 23:10 AST 15 U/L (0-32) 10/16/24 23:10 ALT 11 U/L (0-33) 10/16/24 23:10 Alkaline Phosphatase 63 U/L (35-105) 10/16/24 23:10 C-Reactive Protein 3.0 mg/L (0.0-4.9) 10/16/24 23:10 Total Protein 6.9 g/dL (6.6-8.7) 10/16/24 23:10 Albumin 4.6 g/dL (3.5-5.2) 10/16/24 23:10 Globulin 2.3 g/dL (1.3-4.6) 10/16/24 23:10 No radiology studies performed this visit Discharge Plan Discharge Patient Disposition: Home Clinical Impression: Leg pain Condition: Stable Prescriptions: No Action prenat.vits,cedrick,[id number] Tablet 1 tab PO DAILY Discharge Orders: Discharge ED (Routine); Ordered 10/16/24 Ordered By: Lexy Tineo Referrals: Alfonzo Nix DO [Physician] - 4-7 days (Please call for a follow-up appointment with orthopedics. I think this is the next best step in diagnosing this issue) Discharge Diet: Usual diet Discharge Activity: Increase activity as tolerated Patient Instructions: Opioid Safety, Pain Management Activity Restrictions/Additional Instructions: Thank you for choosing [facility] for your healthcare needs today. Please realize this is an emergency room and that we are providing you with a medical screening exam and this may not be complete and all inclusive of all the testing and or work up that you may need to determine your ailment or severity of your illness. You have been screened and evaluated and felt safe for discharge. Health conditions do change or evolve sometimes and as such it is important that you follow up with your Primary Doctor to be re checked, 3-5 days is a general good time frame for follow up. You are always welcome to return to the ED for re assessment if your symptoms are worsening or you have new concerns Coding Level of Care Code ED Bath Mixer for Basia Mckeon
[2024-10-16 23:43] LABS: Basophils # 0.1 10^3/uL (0.0-0.1); Basophils % 0.7 %; Eosinophils # 0.1 10^3/uL (0.0-0.8); Eosinophils % 0.7 %; Hematocrit 37.3 % (36-47); Lymphocytes # 3.8 10^3/uL (0.8-4.8); Lymphocytes % 38.9 %; Mean Corpuscular HGB Conc 34.9 g/dL (30-55); Mean Corpuscular Hemoglobin 31.6 pg (27-33); Mean Corpuscular Volume 90.8 fl (85-98); Mean Platelet Volume 9.7 fL (7.4-10.4); Monocytes # 0.8 10^3/uL (0.2-0.9); Monocytes % 7.6 %; Neutrophils # 5.11 10^3/uL (1.8-7.7); Neutrophils % 51.9 %; Nucleated Red Blood Cells % 0 %; Platelet Count 302 10^3/cmm (157-399); Red Blood Count 4.11 10^6/uL (3.85-5.65); Red Cell Distribution Width 11.9 % (12.1-15.1); White Blood Count 9.86 10^3/uL (3.29-11.43)
[2024-10-16 23:48] LABS: Alanine Aminotransferase 11 U/L (0-33); Albumin Level 4.6 g/dL (3.5-5.2); Alkaline Phosphatase 63 U/L (35-105); Anion Gap 14.8 (5-19); Aspartate Amino Transferase 15 U/L (0-32); Blood Urea Nitrogen 9 mg/dL (6-20); Calcium 9.4 mg/dL (8.5-10.5); Carbon Dioxide 25 mmol/L (22-29); Chloride 105 mmol/L (98-107); Creatinine Clr Calc Pharmacy 131.6581; Globulin 2.3 g/dL (1.3-4.6); Glucose 102 mg/dL (65-115); Magnesium 2.1 mg/dL (1.7-2.3); Osmolality Calculated 291 mOsm/kg (285-295); Potassium 3.8 mmol/L (3.5-5.1); Sodium 141 mmol/L (136-145); Total Bilirubin 0.2 mg/dL (0.15-1.2); Total Protein 6.9 g/dL (6.6-8.7)
[2024-10-17 00:06] VITALS: BP 103/71; PULSE 87; O2SAT 98
== END 2024-10-17 00:06 | disposition home or self-care (01) ==
PROVIDERS: Emergency Provider Emergency Medicine
DX: M79.605 Pain in left leg (principal); M79.604 Pain in right leg
CPT/HCPCS: 80053; 83735; 85025; 86140; 99283

== ENCOUNTER 2024-10-24 11:42 | Emergency (ER) | payer BC, MEDICAID, SELFPAY ==
[2024-10-24 11:45] VITALS: BP 122/73; PULSE 84; RESP 16; TEMP 36.6; O2SAT 98; BMI 27.6
[2024-10-24 12:23] LABS: Basophils # 0.1 10^3/uL (0.0-0.1); Basophils % 0.7 %; Eosinophils % 0.6 %; Hematocrit 40.5 % (36-47); Lymphocytes # 2.4 10^3/uL (0.8-4.8); Lymphocytes % 34.9 %; Mean Corpuscular HGB Conc 34.3 g/dL (30-55); Mean Corpuscular Hemoglobin 32.3 pg (27-33); Mean Corpuscular Volume 94.2 fl (85-98); Mean Platelet Volume 9.6 fL (7.4-10.4); Monocytes # 0.5 10^3/uL (0.2-0.9); Monocytes % 7.1 %; Neutrophils # 3.92 10^3/uL (1.8-7.7); Neutrophils % 56.4 %; Nucleated Red Blood Cells % 0 %; Platelet Count 263 10^3/cmm (157-399); Red Cell Distribution Width 12.2 % (12.1-15.1); White Blood Count 6.94 10^3/uL (3.29-11.43)
[2024-10-24 12:37] LABS: HCG, Serum Qual Negative (Negative)
[2024-10-24 12:43] LABS: Alanine Aminotransferase 12 U/L (0-33); Albumin Level 4.6 g/dL (3.5-5.2); Alkaline Phosphatase 70 U/L (35-105); Anion Gap 13.8 (5-19); Aspartate Amino Transferase 13 U/L (0-32); Blood Urea Nitrogen 12 mg/dL (6-20); Calcium 9.1 mg/dL (8.5-10.5); Carbon Dioxide 24 mmol/L (22-29); Chloride 103 mmol/L (98-107); Creatinine Clr Calc Pharmacy 131.6581; Globulin 2.5 g/dL (1.3-4.6); Glucose 101 mg/dL (65-115); Osmolality Calculated 284 mOsm/kg (285-295); Potassium 3.8 mmol/L (3.5-5.1); Sodium 137 mmol/L (136-145); Total Bilirubin 0.2 mg/dL (0.15-1.2); Total Protein 7.1 g/dL (6.6-8.7)
--- NOTE | 2024-10-24 14:08 | CTR_ITS ---
PROCEDURE INFORMATION: Exam: CT Head Without Contrast Exam date and time: 10/24/2024 2:27 PM Age: 29 years old Clinical indication: Other: Vision changes; Additional info: Vision change, intermittent vision changes and left tongue tingling TECHNIQUE: Imaging protocol: Computed tomography of the head without contrast. Axial, coronal and sagittal reformatted images were created and reviewed. Radiation optimization: All CT scans at this facility use at least one of these dose optimization techniques: automated exposure control; mA and/or kV adjustment per patient size (includes targeted exams where dose is matched to clinical indication); or iterative reconstruction. COMPARISON: No relevant prior studies available. RADIATION DOSE METRICS: Total DLP (mGy-cm): 1013.18 FINDINGS: Brain: No CT evidence of acute intracranial hemorrhage or acute territorial infarction. No significant mass effect or midline shift. Basal cisterns patent. Cerebral ventricles: Normal in size and configuration. Paranasal sinuses: Unremarkable. No fluid levels. Mastoid air cells: Grossly unremarkable. Bones: Unremarkable. No acute fracture. Soft tissues: Grossly unremarkable. CT/CT head wo con* [id number] IMPRESSION: No CT evidence of acute intracranial pathology.
--- NOTE | 2024-10-24 14:08 | ED_ITS ---
HPI - Weakness 2 General: Chief complaint: Weakness Stated complaint: both legs feel numb Time Seen by Provider: 10/24/24 13:45 Source: patient Mode of arrival: ambulatory Limitations: no limitations History of Present Illness: Patient presents to the emergency department today at the recommendation of her primary care office at [facility] for continued symptoms of bilateral lower extremity (below the knee) episodes of weakness and new complaints of intermittent vision changes, left side of tongue swelling and intermittent roaring of the ears bilaterally. Patient was seen and evaluated here in the emergency department for somewhat similar symptoms on 10/17. She had otherwise negative examination and was recommended that they discuss follow-up with orthopedics or neurology. Patient has been complaining of several months of intermittent bilateral lower leg weakness and occasional tingling. She does follow with podiatry for other foot issues but, podiatry indicated they did not think her symptoms had anything to do with her actual feet. 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 Reports that time on her feet or even activity such as trying to walk through the grocery store, results in lower extremity fatigue where she has to sit down. States that they will feel like Jell-O . Patient is now stating that she has been getting intermittent visual changes. States that when she is focusing up close and cutting people's hair that when she looks away, has difficulty focusing. Also mentions intermittent sensations of left-sided tongue swelling without any difficulty breathing or swallowing. Also indicated feeling like her ears were ringing off and on as well. Patient was seen at [facility] yesterday. They delroy a B12 level on her which was within normal limits. She states that they did give her a referral to neurology. However, the patient's family member in the room said that the primary care office told her to come to the emergency department today. Patient states that she had a right knee injury several months ago-prior to her bilateral lower extremity weakness but, no other injuries directly to her back or head. She is not endorsing any bowel or bladder dysfunction. Review of Systems 2 General: Reports: 10 or more systems reviewed and unremarkable except in HPI and below PFSH ED 2 PFSH: Medical History No pertinent past medical history Denies diabetes, asthma, hypertension, seizures, DVT/PE PCP: None Surgical History Hx of umbilical hernia repair 05/16/23 Dr. Rosen Hx of wisdom tooth extraction No pertinent past surgical history Family History Father Hypertension Denies family history of Colon cancer Ovarian cancer Diabetes Heart disease Hypercholesteremia Breast cancer Uterine cancer Thyroid disease Stroke Social History Smoking and tobacco/nicotine status: never used tobacco/nicotine Alcohol intake: never Physical Exam 2 Const: COMMON NORMALS: no acute distress, patient oriented x3 and alert HENMT: MOUTH: Normal oral and palatal mucosa present, lip normal and tongue normal; no audible dysphonia, no drooling, no muffled voice and tongue not abnormal Eye: COMMON NORMALS: Equal, round and reactive pupils present, EOMs intact bilaterally and conjunctivae normal CONJUNCTIVA: Yes conjunctivae normal P UPIL: Yes Equal, round and reactive pupils present Neck/C-Spine: COMMON NORMALS: full ROM, no lymphadenopathy, supple, no meningeal signs and Thyroid normal THYROID: Thyroid normal Lymph: LYMPHATIC: no lymphadenopathy noted Resp: COMMON NORMALS: normal respiratory effort, No retractions and No use of accessory muscles Cardio: COMMON NORMALS: regular rate and regular rhythm RATE: regular rate RHYTHM: regular rhythm Back/Pelvis: COMMON NORMALS: thoracic and lumbar spine normal to inspection and thoraco-lumbar ROM normal Extremity: COMMON NORMALS: normal to inspection, full ROM and no pedal edema Neuro: COMMON NORMALS: patient oriented x3 SENSORIUM/ORIENTATION: Yes alert MENINGEAL SIGNS: Yes no meningeal signs CRANIAL NERVES: Yes CN normal except as noted SPEECH: speech normal GAIT: Yes Normal gait present O THER: Patient able to perform straight leg raise and hold. Was able to hold against resistance. Patient able to plantar dorsiflex independently and against resistance. Skin: COMMON NORMALS: no rashes or lesions noted and turgor normal GENERAL SKIN EXAM: no rashes or lesions noted and turgor normal Course 2 Vital Signs: Vital signs: Vital Signs Temperature 97.8 F 10/24/24 11:45 Pulse Rate 84 10/24/24 15:53 Respiratory Rate 14 10/24/24 15:53 Blood Pressure 112/55 10/24/24 15:53 Pulse Oximetry 100 10/24/24 15:53 Oxygen Delivery Me thod Room Air 10/24/24 11:45 MDM - Weakness Medical Decision Making Patient presents emergency department today stating she was told to come by her primary care office. She was seen and evaluated by them yesterday and, has had a previous evaluation for this through the emergency department on 10/17. Patient had an otherwise negative workup previously. B12 from her primary care office yesterday is within normal limits. Labs today show no acute abnormalities. Patient is again complaining of lower extremity intermittent weakness but, is also complaining of some visual changes, left-sided tongue change in sensation and some hearing changes. With these reports, I did do a CT scan of the head which revealed no acute abnormalities including masses, space- occupying lesions, or bleeds. Patient has a referral to neurology already in place. I encouraged her to have this follow-up to discuss. In the meantime, we will provide a short course of some low-dose steroids should there be a component of fibromyalgia or autoimmune at this time. Neurology can assess whether or not patient had improvement with this treatment and can therefore assess appropriately. Return precautions given. Patient verbalizes understanding and agreement to treatment plan. Differential Diagnosis Unlikely anemia, hypoglycemia, sepsis or dehydration Lab Data 10/24/24 12:17 10/24/24 12:[address] 10/24/24 14:08 IMPRESSION: No CT evidence of acute intracranial pathology. Laboratory Results WBC 6.94 10^3/uL (3.29-11.43) 10/24/24 12:17 RBC 4.30 10^6/uL (3.85-5.65) 10/24/24 12:17 Hgb 13.90 g/dL (11.27-16.99) 10/24/24 12:17 Hct 40.5 % (36-47) 10/24/24 12:17 MCV 94.2 fl (85-98) 10/24/24 12:17 MCH 32.3 pg (27-33) 10/24/24 12:17 MCHC 34.3 g/dL (30-55) 10/24/24 12:17 RDW 12.2 % (12.1-15.1) 10/24/24 12:17 Plt Count 263 10^3/cmm (157-399) 10/24/24 12:17 MPV 9.6 fL (7.4-10.4) 10/24/24 12:17 Neut % (Auto) 56.4 % 10/24/24 12:17 Lymph % (Auto) 34.9 % 10/24/24 12:17 [place] % (Auto) 7.1 % 10/24/24 12:17 Eos % (Auto) 0.6 % 10/24/24 12:17 Baso % (Auto) 0.7 % 10/24/24 12:17 Neut # (Auto) 3.92 10^3/uL (1.8-7.7) 10/24/24 12:17 Lymph # (Auto) 2.4 10^3/uL (0.8-4.8) 10/24/24 12:17 [place] # (Auto) 0.5 10^3/uL (0.2-0.9) 10/24/24 12:17 Eos # (Auto) 0.0 10^3/uL (0.0-0.8) 10/24/24 12:17 Baso # (Auto) 0.1 10^3/uL (0.0-0.1) 10/24/24 12:17 Nucleated RBC % (auto) 0 % 10/24/24 12:17 Nucleated RBCs # 0.0 /100WBC 10/24/24 12:17 Sodium 137 mmol/L (136-145) 10/24/24 12:17 Potassium 3.8 mmol/L (3.5-5.1) 10/24/24 12:17 Chloride 103 mmol/L (98-107) 10/24/24 12:17 Carbon Dioxide 24 mmol/L (22-29) 10/24/24 12:17 Anion Gap 13.8 (5-19) 10/24/24 12:17 BUN 12 mg/dL (6-20) 10/24/24 12:17 Creatinine 0.6 mg/dL (0.5-0.9) 10/24/24 12:17 GFR Calculation 119.0 mL/min (90-130) 10/24/24 12:17 Glucose 101 mg/dL (65-115) 10/24/24 12:17 Calculated Osmolality 284 mOsm/kg (285-295) L 12/04/24 12:17 Calcium 9.1 mg/dL (8.5-10.5) 10/24/24 12:17 Total Bilirubin 0.2 mg/dL (0.15-1.2) 10/24/24 12:17 AST 13 U/L (0-32) 10/24/24 12:17 ALT 12 U/L (0-33) 10/24/24 12:17 Alkaline Phosphatase 70 U/L (35-105) 10/24/24 12:17 Total Protein 7.1 g/dL (6.6-8.7) 10/24/24 12:17 Albumin 4.6 g/dL (3.5-5.2) 10/24/24 12:17 Globulin 2.5 g/dL (1.3-4.6) 10/24/24 12:17 HCG, Qual Negative (Negative) 10/24/24 12:17 All radiology interpretation(s) finalized by discharge Discharge Plan Discharge Patient Disposition: Home Clinical Impression: Complaints of weakness of lower extremity, Alteration in vision, Abnormal mouth sensation Condition: Stable Prescriptions: New prednisone 10 mg tablet 10 mg PO DAILY Qty: 7 0RF No Action prenat.vits,cedrick,[id number] Tablet 1 tab PO DAILY Discharge Orders: Discharge ED (Routine); Ordered 10/24/24 Ordered By: Natasha Brice Discharge Diet: Usual diet Discharge Activity: Increase activity as tolerated Patient Instructions: Weakness (Generalized) Activity Restrictions/Additional Instructions: Labs today show no abnormalities. The CT scan of your head shows no signs of masses, lesions, or bleeds. I am trying you on a low-dose steroid for several days to see if some of the symptoms could be related to an autoimmune issue with increased inflammation throughout her body. Luckily, autoimmune inflammation seems to respond well to low-dose steroids which, should still be safe for you to breast-feed your kids. As you already have a referral to neurology, I would like you to follow-up on that as soon as possible. I recommend calling the neurology office which you were referred to to discuss facilitating the scheduling of your follow-up appointment. I think at this time, a neurology specialist is the best option as at this time, we are not finding any acute concerns in your evaluations through the emergency department. They can do further testing and exams more specialized to their neuro specialty and might be able to come up with other potential diagnoses for your symptoms. However, if you develop slurred speech, loss of vision in a single eye, one- sided facial droop or 1 whole sided body weakness/numbness need to be seen in the emergency department. Coding Level of Care Code ED Cosmetologist for Chg Fwd Related Data Home Medications Medication Instructions Recorded Confirmed prenat.vits,cedrick,[id number] 1 tab PO DAILY 12/29/21 10/24/24 Previous Rx's Medication Instructions Recorded prednisone 10 mg tablet 10 mg PO DAILY #7 tabs 10/24/24 Allergies Allergy/AdvReac Type Severity Reaction Status Date / Time No Known Allergies Allergy Verified 10/16/24 22:47
[2024-10-24 15:53] VITALS: BP 112/55; PULSE 84; RESP 14; O2SAT 100
== END 2024-10-24 15:55 | disposition home or self-care (01) ==
PROVIDERS: Emergency Medicine; Emergency Provider Physician Assistant
DX: R53.1 Weakness (principal); H53.9 Unspecified visual disturbance; R20.2 Paresthesia of skin
CPT/HCPCS: 36415; 70450; 80053; 84703; 85025; 99284

== ENCOUNTER → 2025-03-07 09:10 | Outpatient (BNVA) | payer BC, MEDICAID, SELFPAY | PROVIDERS: PCP Family Medicine; Referring Provider Family Medicine; Visit Provider Psychiatry & Neurology Neurology | DX: R20.2 Paresthesia of skin (principal); E55.9 Vitamin D deficiency, unspecified; E53.8 Deficiency of other specified B group vitamins | CPT/HCPCS: 36415; 82306; 82607; 82746; 83735; 84439; 84443; 84481 ==

== ENCOUNTER 2025-03-08 13:39 | Outpatient (CLI) | payer BC, MEDICAID, SELFPAY ==
--- NOTE | 2025-03-08 13:45 | MR_ITS ---
WS: [id number] MRI CERVICAL SPINE NONCONTRAST TECHNIQUE: Sagittal T1, T2 and STIR imaging. Axial T2, gradient, and fiesta imaging. CLINICAL INFORMATION: M54.2 - Cervicalgia COMPARISON: None. FINDINGS: Straightening of the normal cervical lordosis. Cord signal is normal. Disc bulging worse at C5-6 with a small annular fissure. C2-C3: Normal. C3-C4: Mild facet arthropathy. Mild LEFT foraminal narrowing. C4-C5: Minimal disc bulging. Mild facet arthropathy. Spinal canal and foramen are patent. C5-C6: Mild disc bulge with a small annular fissure. Mild endplate osteophytic ridging. Mild facet arthropathy. Foramina are patent. C6-C7: Mild disc bulging. Spinal canal and foramina are patent. Mild facet arthropathy. C7-T1: No significant spinal canal or foraminal narrowing. Visualized brain stem structures: Normal. Prevertebral soft tissues: Normal. Minimal incidental slightly low-lying cerebellar tonsils. Normal fourth ventricle. MR/MR cervical spin wo con* [id number] IMPRESSION: 1. Straightening of the normal cervical lordosis. 2. Disc bulging worse at C5-6 with a small annular tear with slight effacement of the ventral thecal sac. Spinal canal and foramina are patent at this level. 3. No significant spinal canal or foraminal narrowing. 4. Mild facet arthropathy C4-C6. 5. Cord signal is normal. 6. No other acute findings.
== END 2025-03-08 13:40 | disposition home or self-care (01) ==
PROVIDERS: PCP Family Medicine; Visit Provider Psychiatry & Neurology Neurology
DX: M50.322 Other cervical disc degeneration at C5-C6 level (principal); M47.892 Other spondylosis, cervical region; M50.321 Other cervical disc degeneration at C4-C5 level; M25.78 Osteophyte, vertebrae; M50.323 Other cervical disc degeneration at C6-C7 level
CPT/HCPCS: 72141